=== PATIENT | female | born 1950 | race Caucasian/White ===

== ENCOUNTER → 2016-12-13 | Outpatient (CLI) | payer OTHER, MEDICARE | END | disposition home or self-care (01) | LOC: CFH 08:08 | PROVIDERS: ATTEND Family Medicine | DX: Z12.31 Encounter for screening mammogram for malignant neoplasm of breast (principal) | CPT/HCPCS: G0202 ==

== ENCOUNTER 2017-07-09 05:55 | Day surgery (SDC) | payer OTHER, MEDICARE ==
[~2017-07-09] VITALS: Ht 157.5 cm; Wt 59.4 kg
[2017-07-09 06:37] VITALS: BP 185/81
[2017-07-09] MEDS ORDERED: CITA20TA5 PO (06:37)
[2017-07-09] MEDS ORDERED: OMEP40CA6 PO (06:37)
[2017-07-09] MEDS ORDERED: AMLO2.5T PO (06:37)
[2017-07-09] MEDS ORDERED: LEVO112T4 PO (06:37)
[2017-07-09] MEDS ORDERED: ASPI-496 PO (06:37)
[2017-07-09] MEDS ORDERED: LACTATED RINGERS 1,000 ML IV SCH (06:44)
[2017-07-09] MEDS ORDERED: FENTANYL PF 100 MCG/2ML ONE (06:47)
[2017-07-09] MEDS ORDERED: MIDAZOLAM 1 MG/ML, 2ML ONE (06:47)
[2017-07-09] MEDS ORDERED: PROPOFOL 10 MG/ML, 20ML ONE (06:49)
[2017-07-09] MEDS ORDERED: CEFAZOLIN 1,000 MG ONE ×2 (06:49)
[2017-07-09] MEDS ORDERED: ONDANSETRON 2MG/ML, 2ML ONE (06:49)
[2017-07-09] MEDS ORDERED: DEXAMETHASONE 4 MG/ML, 1ML ONE (06:49)
[2017-07-09 06:52] LABS: ASPARTATE AMINO TRANSFERASE 19 U/L (15-37); BLOOD UREA NITROGEN 24 mg/dL (7-18)
[2017-07-09] MEDS ORDERED: PROMETHAZINE 25 MG/ML, 1ML IV PRN (07:00)
[2017-07-09] MEDS ORDERED: FENTANYL PF 100 MCG/2ML IV PRN (07:00)
[2017-07-09] MEDS ORDERED: OXYcodone 5 MG/5 ML ORAL.SOL UDC PO PRN (07:00)
[2017-07-09] MEDS ORDERED: ACETAMINOPHEN 325 MG TABLET PO PRN (07:00)
[2017-07-09] MEDS ORDERED: BUPIVACAINE/PF 0.5% ONE (07:05)
[2017-07-09] MEDS ORDERED: LIDOCAINE/PF 1%, 30ML ONE (07:05)
[2017-07-09] MEDS ORDERED: ATROPINE 0.4 MG/ML, 1ML ONE (07:06)
== END 2017-07-09 09:25 ==
LOC: OUT 05:55
PROVIDERS: ATTEND Surgery
DX: R15.9 Full incontinence of feces (principal); E03.9 Hypothyroidism, unspecified; Z98.890 Other specified postprocedural states; Z90.710 Acquired absence of both cervix and uterus; Z90.49 Acquired absence of other specified parts of digestive tract; Z79.82 Long term (current) use of aspirin; Z72.89 Other problems related to lifestyle; Z87.891 Personal history of nicotine dependence
CPT/HCPCS: 36415; 64581; 64590; 72220; 80053; 93005; C1767; C1776; C1787; C1883; J0461; J0690; J2250; J2405; J2704; J3010; J3490; J7120; J1100

== ENCOUNTER → 2018-01-24 | Outpatient (CLI) | payer OTHER, MEDICARE ==
[~2018-01-24] MED LIST: AMLO2.5T PO; ASPI-496 PO; CITA20TA6 PO; LEVO112T4 PO; OMEP40CA6 PO
== END | disposition home or self-care (01) ==
LOC: CFH 07:58
PROVIDERS: ATTEND Family Medicine
DX: Z12.31 Encounter for screening mammogram for malignant neoplasm of breast (principal)
CPT/HCPCS: 77067

== ENCOUNTER 2018-04-23 07:51 | Day surgery (SDC) | payer OTHER, MEDICARE ==
[~2018-04-23] VITALS: Ht 157.5 cm; Wt 58.3 kg
[~2018-04-23 07:51] MED LIST changes: -CITA20TA9 PO
[2018-04-23] MEDS ORDERED: LACTATED RINGERS 1,000 ML IV SCH (08:26)
[2018-04-23 08:57] VITALS: BP 165/73
[2018-04-23] MEDS ORDERED: CITA20TA9 PO (09:06)
[2018-04-23] MEDS ORDERED: FENTANYL PF 100 MCG/2ML ONE (09:37)
[2018-04-23] MEDS ORDERED: PROPOFOL 10 MG/ML, 20ML ONE (09:43)
[2018-04-23] MEDS ORDERED: FENTANYL PF 100 MCG/2ML IV PRN (10:00)
[2018-04-23] MEDS ORDERED: hydrALAzine 20 MG/ML, 1ML IV PRN (10:00)
[2018-04-23] MEDS ORDERED: LABETALOL 5MG/ML, 20ML IV PRN (10:00)
== END 2018-04-23 11:10 | disposition home or self-care (01) ==
LOC: OUT 07:51
PROVIDERS: ATTEND Internal Medicine Geriatric Medicine
DX: K22.70 Barrett's esophagus without dysplasia (principal); M34.9 Systemic sclerosis, unspecified; D72.1 Eosinophilia; K30 Functional dyspepsia; K22.2 Esophageal obstruction; K31.89 Other diseases of stomach and duodenum; K21.9 Gastro-esophageal reflux disease without esophagitis; I10 Essential (primary) hypertension; E03.9 Hypothyroidism, unspecified; Z88.6 Allergy status to analgesic agent
CPT/HCPCS: 43239; 88305; 93005; J2704; J3010; J7120

== ENCOUNTER → 2018-04-23 | Outpatient (CLI) | payer OTHER, MEDICARE ==
[~2018-04-23] MED LIST changes: -AMLO2.5T PO; +AMLO2.5T3 PO; +CITA20TA9 PO
[2018-04-23 08:01] LABS: ALANINE AMINOTRANSFERASE 24 U/L (12-78); ALBUMIN 3.4 g/dL (3.4-5.0); ANION GAP 7 mmol/L (5-15); CALCIUM 8.5 mg/dL (8.5-10.1); CHLORIDE 110 mmol/L (98-107); CREATININE 0.85 mg/dL (0.55-1.02)
[2018-04-23 08:12] LABS: ALKALINE PHOSPHATASE 63 U/L (45-117); BILIRUBIN,TOTAL 0.3 mg/dL (0.2-1.0); CHOL/HDL RATIO 2.2; CHOLESTEROL, TOTAL 168 mg/dL (140-239); HDL CHOL % 45 % (28-40); HDL CHOLESTEROL (DIRECT) 76 mg/dL (40-60); LDL CHOLESTEROL,CALCULATED 77 mg/dL (54-169); THYROID STIMULATING HORMONE 0.029 mIU/L (0.358-3.740); TRIGLYCERIDES 73 mg/dL (50-200); VLDL CHOLESTEROL 15 mg/dL (0-25)
[2018-04-23 08:20] LABS: HEMOGLOBIN A1C 5.5 % (4.2-6.3)
[2018-04-23 08:46] LABS: BASOPHILS % (AUTO) 2 % (0-1); EOSINOPHILS % (AUTO) 9 % (1-7); LYMPHOCYTES # (AUTO) 1.18 x10^3/uL (1-3.4); LYMPHOCYTES % (AUTO) 18 % (22-44); MD NO; MEAN CORPUSCULAR HEMOGLOBIN 30.2 pg (27.0-34.8); MEAN CORPUSCULAR HGB CONC 33.5 g/dL (32.4-35.8); MEAN CORPUSCULAR VOLUME 90.2 fL (80-100); MEAN PLATELET VOLUME 9.5 fL (7.4-10.4); MONOCYTES # (AUTO) 0.55 x10^3/uL (0.2-0.8); MONOCYTES % (AUTO) 8 % (2-9); NEUTROPHILS # (AUTO) 4.08 x10^3/uL (1.8-6.8); NEUTROPHILS % (AUTO) 63 % (42-75); PLATELET COUNT 248 x10^3/uL (130-400); RED CELL DISTRIBUTION WIDTH 13.7 % (9.6-15.2)
== END | disposition home or self-care (01) ==
LOC: LAB 07:29
PROVIDERS: ATTEND Family Medicine
DX: I10 Essential (primary) hypertension (principal); E78.5 Hyperlipidemia, unspecified; E03.9 Hypothyroidism, unspecified; K21.9 Gastro-esophageal reflux disease without esophagitis; M79.1 Myalgia; R79.9 Abnormal finding of blood chemistry, unspecified; J30.9 Allergic rhinitis, unspecified; I49.9 Cardiac arrhythmia, unspecified; M12.9 Arthropathy, unspecified; M35.9 Systemic involvement of connective tissue, unspecified; R42 Dizziness and giddiness; R53.83 Other fatigue; Z79.891 Long term (current) use of opiate analgesic
CPT/HCPCS: 36415; 80053; 80061; 83036; 84443; 85025

== ENCOUNTER 2019-02-17 07:16 | Outpatient (CLI) | payer OTHER, MEDICARE ==
[~2019-02-17 07:16] MED LIST changes: -AMLO2.5T3 PO; +AMLO2.5T5 PO; +CITA20TA9 PO
== END 2019-02-17 23:59 | disposition home or self-care (01) ==
LOC: CFH 07:16
PROVIDERS: ATTEND Family Medicine
DX: Z12.31 Encounter for screening mammogram for malignant neoplasm of breast (principal)
CPT/HCPCS: 77067

== ENCOUNTER 2019-05-29 07:06 | Outpatient (CLI) | payer OTHER, MEDICARE ==
[~2019-05-29 07:06] MED LIST changes: +OMEP40CA42 PO; -OMEP40CA6 PO
== END 2019-05-29 23:59 | disposition home or self-care (01) ==
LOC: CFH 07:06
PROVIDERS: ATTEND Physician Assistant Medical
DX: R07.9 Chest pain, unspecified (principal)
CPT/HCPCS: 71046

== ENCOUNTER → 2019-06-19 | Outpatient (CLI) | payer OTHER, MEDICARE | END | disposition home or self-care (01) | LOC: CVU 08:39 | PROVIDERS: ATTEND Internal Medicine Cardiovascular Disease | DX: I08.3 Combined rheumatic disorders of mitral, aortic and tricuspid valves (principal); I10 Essential (primary) hypertension; Z87.891 Personal history of nicotine dependence; Z80.9 Family history of malignant neoplasm, unspecified | CPT/HCPCS: 93306 ==

== ENCOUNTER 2019-09-01 09:37 | Emergency (ER) | payer OTHER, MEDICARE ==
[~2019-09-01] VITALS: Ht 157.5 cm; Wt 61.6 kg
--- NOTE | 2019-09-01 10:03 | NUR ---
PT HERE WITH C/O THROAT PAIN X 4 DAYS. PT STATES "IT'S SORE WHERE MY THYROID IS." PT HAS HX HYPOTHYROID. PT ALSO STATES "IT'S SORE TO TOUCH AND SOMETIMES IT HURTS TO SWALLOW." PT AAO X 4, NAD, ROOM AIR, CALL LIGHT WITHIN REACH. PT DRESSED IN GOWN AND ATTACHED TO MONITOR. SIDERAIL X [address] MD AT BEDSIDE FOR EXAM.
--- NOTE | 2019-09-01 10:46 | NUR ---
US AT BEDSIDE.
[2019-09-01 10:47] VITALS: BP 151/56
--- NOTE | 2019-09-01 11:47 | NUR ---
ALL RESULTS BACK AT THIS TIME, CHART UP FOR RECHECK. DR. GOMEZ AT BEDSIDE FOR REASSESSMENT, PLAN FOR D/C.
--- NOTE | 2019-09-01 12:18 | NUR ---
Patient/Caregiver given discharge instructions and they have confirmed that they understand the instructions. Patient ambulatory with steady gait.
== END 2019-09-01 12:19 | disposition home or self-care (01) ==
LOC: ED 11:15
DX: M54.2 Cervicalgia (principal); R07.0 Pain in throat; I10 Essential (primary) hypertension; E03.9 Hypothyroidism, unspecified
CPT/HCPCS: 76536; 99284

== ENCOUNTER → 2019-09-01 | Outpatient (CLI) | payer OTHER, MEDICARE ==
[2019-09-01 07:53] LABS: BASOPHILS % (AUTO) 2 % (0-1); EOSINOPHILS % (AUTO) 7 % (1-7); LYMPHOCYTES # (AUTO) 0.99 x10^3/uL (1-3.4); LYMPHOCYTES % (AUTO) 18 % (22-44); MD NO; MEAN CORPUSCULAR HGB CONC 33.2 g/dL (32.4-35.8); MEAN CORPUSCULAR VOLUME 93.5 fL (80-100); MEAN PLATELET VOLUME 9.1 fL (7.4-10.4); MONOCYTES # (AUTO) 0.59 x10^3/uL (0.2-0.8); MONOCYTES % (AUTO) 11 % (2-9); NEUTROPHILS # (AUTO) 3.49 x10^3/uL (1.8-6.8); NEUTROPHILS % (AUTO) 63 % (42-75); PLATELET COUNT 213 x10^3/uL (130-400); RED BLOOD COUNT 4.21 x10^6/uL (3.82-5.3); RED CELL DISTRIBUTION WIDTH 14.1 % (9.6-15.2)
[2019-09-01 08:04] LABS: ALANINE AMINOTRANSFERASE 18 U/L (12-78); ALBUMIN 3.1 g/dL (3.4-5.0); ANION GAP 3 mmol/L (5-15); CALCIUM 8.3 mg/dL (8.5-10.1); CHLORIDE 112 mmol/L (98-107)
[2019-09-01 08:13] LABS: ALKALINE PHOSPHATASE 60 U/L (45-117); BILIRUBIN,TOTAL 0.3 mg/dL (0.2-1.0); CHOL/HDL RATIO 2.1; CHOLESTEROL, TOTAL 172 mg/dL (140-239); CREATININE 0.87 mg/dL (0.55-1.02); FREE T4 (FREE THYROXINE) 1.39 ng/dL (0.76-1.46); HDL CHOL % 48 % (28-40); HDL CHOLESTEROL (DIRECT) 82 mg/dL (40-60); LDL CHOLESTEROL,CALCULATED 80 mg/dL (54-169); TOTAL PROTEIN 6.4 g/dL (6.4-8.2); TRIGLYCERIDES 48 mg/dL (50-200); VLDL CHOLESTEROL 10 mg/dL (0-25)
== END | disposition home or self-care (01) ==
LOC: LAB 07:41
PROVIDERS: ATTEND Physician Assistant Medical
DX: R07.9 Chest pain, unspecified (principal); E78.5 Hyperlipidemia, unspecified; E03.9 Hypothyroidism, unspecified
CPT/HCPCS: 36415; 80053; 80061; 84439; 84443; 84481; 85025

== ENCOUNTER → 2020-02-18 | Outpatient (CLI) | payer OTHER, MEDICARE ==
[2020-02-18 09:01] LABS: MICROSCOPIC AUTO
[2020-02-18 09:02] LABS: BASOPHILS # (AUTO) 0.07 x10^3/uL (0-0.1); BASOPHILS % (AUTO) 1 % (0-1); EOSINOPHILS % (AUTO) 9 % (1-7); LYMPHOCYTES # (AUTO) 1.08 x10^3/uL (1-3.4); LYMPHOCYTES % (AUTO) 16 % (22-44); MD NO; MEAN CORPUSCULAR HEMOGLOBIN 30.2 pg (27.0-34.8); MEAN CORPUSCULAR HGB CONC 32.5 g/dL (32.4-35.8); MEAN CORPUSCULAR VOLUME 92.8 fL (80-100); MEAN PLATELET VOLUME 8.9 fL (7.4-10.4); MONOCYTES # (AUTO) 0.49 x10^3/uL (0.2-0.8); MONOCYTES % (AUTO) 7 % (2-9); NEUTROPHILS # (AUTO) 4.63 x10^3/uL (1.8-6.8); NEUTROPHILS % (AUTO) 67 % (42-75); PLATELET COUNT 239 x10^3/uL (130-400); RED BLOOD COUNT 4.43 x10^6/uL (3.82-5.3); RED CELL DISTRIBUTION WIDTH 13.5 % (9.6-15.2)
[2020-02-18 09:13] LABS: CHLORIDE 111 mmol/L (98-107)
[2020-02-18 09:26] LABS: ALANINE AMINOTRANSFERASE 23 U/L (12-78); ALBUMIN 3.4 g/dL (3.4-5.0); ALKALINE PHOSPHATASE 69 U/L (45-117); ANION GAP 7 mmol/L (5-15); BILIRUBIN,TOTAL 0.4 mg/dL (0.2-1.0); CALCIUM 8.9 mg/dL (8.5-10.1); CHOL/HDL RATIO 2.4; CHOLESTEROL, TOTAL 182 mg/dL (140-239); CREATININE 0.77 mg/dL (0.55-1.02); FREE T4 (FREE THYROXINE) 1.62 ng/dL (0.76-1.46); HDL CHOL % 41 % (28-40); HDL CHOLESTEROL (DIRECT) 75 mg/dL (40-60); LDL CHOLESTEROL,CALCULATED 92 mg/dL (54-169); LDL/HDL RATIO 1.2 (0.5-3.0); TOTAL PROTEIN 6.6 g/dL (6.4-8.2); TRIGLYCERIDES 76 mg/dL (50-200); VLDL CHOLESTEROL 15 mg/dL (0-25)
== END | disposition home or self-care (01) ==
LOC: CFH 06:54
PROVIDERS: ATTEND Family Medicine
DX: K76.0 Fatty (change of) liver, not elsewhere classified (principal); I10 Essential (primary) hypertension; E03.9 Hypothyroidism, unspecified; Z90.710 Acquired absence of both cervix and uterus; Z90.49 Acquired absence of other specified parts of digestive tract
CPT/HCPCS: 36415; 76700; 76830; 80053; 80061; 81001; 83036; 83516; 84439; 84443; 84481; 85025; 86003; 86005

== ENCOUNTER 2020-04-28 14:14 | Outpatient (CLI) | payer OTHER, MEDICARE | END 2020-04-28 23:59 | disposition home or self-care (01) | LOC: CFH 14:14 | PROVIDERS: ATTEND Family Medicine | DX: Z12.31 Encounter for screening mammogram for malignant neoplasm of breast (principal) | CPT/HCPCS: 77067 ==

== ENCOUNTER → 2020-09-29 | Outpatient (CLI) | payer OTHER, MEDICARE ==
[2020-09-29 14:52] LABS: T4 (THYROXINE) 10.1 mcg/dL (4.8-13.9)
== END | disposition home or self-care (01) ==
LOC: LAB 14:26
PROVIDERS: ATTEND Internal Medicine Cardiovascular Disease
DX: E03.9 Hypothyroidism, unspecified (principal); I10 Essential (primary) hypertension; I47.1 Supraventricular tachycardia; R00.1 Bradycardia, unspecified; R05 Cough; J06.9 Acute upper respiratory infection, unspecified; Z72.0 Tobacco use
CPT/HCPCS: 36415; 84436; 84443; 84481

== ENCOUNTER 2020-11-16 09:59 | Outpatient (CLI) | payer OTHER, MEDICARE ==
[2020-11-16] MEDS ORDERED: AMLO-150 PO (11:24)
[2020-11-16] MEDS ORDERED: FLUO40CR9 TP (11:24)
== END 2020-11-16 23:59 | disposition home or self-care (01) ==
LOC: STAR 09:59
PROVIDERS: ATTEND Orthopaedic Surgery
DX: Z01.818 Encounter for other preprocedural examination (principal); G56.01 Carpal tunnel syndrome, right upper limb; R00.1 Bradycardia, unspecified; Z20.822 Contact with and (suspected) exposure to COVID-19
CPT/HCPCS: 93005; U0003

== ENCOUNTER 2020-11-22 06:58 | Day surgery (SDC) | payer OTHER, MEDICARE ==
[~2020-11-22] VITALS: Ht 157.5 cm; Wt 58.5 kg
[~2020-11-22 06:58] MED LIST changes: +AMLO-150 PO; +BUPIVACAINE/PF 0.5% ONE; +EPINEPHRINE 1 MG/ML, 1ML ONE; +FLUO40CR9 TP
[2020-11-22] MEDS ORDERED: PROMETHAZINE 25 MG/ML, 1ML IVPush PRN (07:00)
[2020-11-22] MEDS ORDERED: FENTANYL PF 100 MCG/2ML IV PRN (07:00)
[2020-11-22] MEDS ORDERED: HYDROmorphone 1 MG/ML, 1ML INJ IVPush PRN (07:00)
[2020-11-22] MEDS ORDERED: ONDANSETRON 2MG/ML, 2ML IVPush PRN (07:00)
[2020-11-22] MEDS ORDERED: EPHEDRINE 50 MG/ML, 1ML IVPush PRN (07:00)
[2020-11-22] MEDS ORDERED: hydrALAzine 20 MG/ML, 1ML IV PRN (07:00)
[2020-11-22] MEDS ORDERED: OXYcodone 5 MG/5 ML ORAL.SOL UDC PO PRN (07:00)
[2020-11-22] MEDS ORDERED: LABETALOL 5MG/ML, 20ML IV PRN (07:00)
[2020-11-22] MEDS ORDERED: ACETAMINOPHEN 325 MG TABLET PO PRN (07:00)
[2020-11-22] MEDS ORDERED: CHLORHEXIDINE 15 ML UDC ONE (07:07)
[2020-11-22 07:13] VITALS: BP 127/65
[2020-11-22] MEDS ORDERED: LACTATED RINGERS 1,000 ML IV SCH (07:30)
[2020-11-22] MEDS ORDERED: CHLORHEXIDINE 15 ML UDC PO ONE (07:30)
[2020-11-22] MEDS ORDERED: BUPIVACAINE/PF 0.5% ONE (08:04)
[2020-11-22] MEDS ORDERED: FENTANYL PF 100 MCG/2ML ONE (08:06)
[2020-11-22] MEDS ORDERED: PROPOFOL 10 MG/ML, 20ML ONE ×2 (08:08)
[2020-11-22] MEDS ORDERED: GLYCOPYRROLATE 0.2MG/1ML, 5ML ONE ×2 (08:15)
[2020-11-22] MEDS ORDERED: DEXAMETHASONE 4 MG/ML, 5ML ONE (08:16)
[2020-11-22] MEDS ORDERED: KETOROLAC 30 MG/1 ML ONE (08:16)
[2020-11-22] MEDS ORDERED: ONDANSETRON 2MG/ML, 2ML ONE (08:17)
[2020-11-22] MEDS ORDERED: EPHEDRINE 50 MG/ML, 1ML ONE (08:25)
== END 2020-11-22 10:15 | disposition home or self-care (01) ==
LOC: OUT 06:58
PROVIDERS: ATTEND Orthopaedic Surgery
DX: G56.03 Carpal tunnel syndrome, bilateral upper limbs (principal); I10 Essential (primary) hypertension; F32.9 Major depressive disorder, single episode, unspecified; E03.9 Hypothyroidism, unspecified; K21.9 Gastro-esophageal reflux disease without esophagitis; Z79.82 Long term (current) use of aspirin; Z79.890 Hormone replacement therapy; Z79.899 Other long term (current) drug therapy; Z87.891 Personal history of nicotine dependence; Z88.8 Allergy status to other drugs, medicaments and biological substances
CPT/HCPCS: 29848; J0171; J1100; J1885; J2405; J2704; J3010; J7120